=== PATIENT | male | born 1980 | race Caucasian/White ===

== ENCOUNTER 2016-08-17 05:43 | Emergency (ER) | payer OTHER ==
[~2016-08-17] VITALS: Ht 180.3 cm; Wt 94.1 kg
[2016-08-17 05:46] VITALS: Ht 180.3 cm; Wt 94.1 kg
[2016-08-17] MEDS ORDERED: CYCL10TA6 PO (06:19)
[2016-08-17] MEDS ORDERED: PRED50TA PO (06:19)
--- NOTE | 2016-08-17 06:19 | EMERGENCY ROOM VISIT NOTE ---
History Report prepared by Sunibmisty: Jake Mcconnell Under the Supervision of: Dr. Kirt Campoverde M.D. First contact with patient: 05:54 Chief Complaint: SHOULDER PAIN Stated Complaint: RIGHT SHOULDER PAIN History of Present Illness The patient is a 36 year old male who presents to the Emergency Room with complaints of persistent right shoulder pain beginning this week. He injured his shoulder in [place] 7 years ago, but has not had any significant problems with it since. He notes that he was white water rafting earlier this week. The patient has been taking Ibuprofen for his pain but has seen minimal relief. He notes that he drove to [place] for the white water rafting and has been experiencing some "tightness" in his neck. Source of History: patient Onset: This week Position: shoulder (right) Timing: other (persistent) Associated Symptoms: + neck pain ("tightness") Review of Systems See HPI for pertinent positives & negatives. A total of 6 systems reviewed and were otherwise negative. Past Medical & Surgical Medical Problems: (1) Concussion (2) No Known Active Medical Problems Family History No pertinent family history stated. Social History Smoking Status: Never Smoker Occupation Status: employed Current/Historical Medications Scheduled Prednisone (Prednisone), 50 MG PO DAILY Scheduled PRN Cyclobenzaprine Hcl (Flexeril), 10 MG PO TID PRN for Muscle Spasms Allergies Coded Allergies: Codeine (Unverified Allergy, Severe, unknown, 08/17/16) Penicillins (Unverified Allergy, Severe, unknown, 08/17/16) Physical Exam Vital Signs Date Time Temp Pulse Resp B/P (MAP) Pulse Ox O2 Delivery O2 Flow Rate FiO2 08/17/16 06:43 36.4 85 16 126/84 97 08/17/16 05:46 36.4 85 16 126/84 97 Room Air Physical Exam GENERAL: Patient is well appearing and in no acute distress. HEENT: No acute trauma, normocephalic atraumatic, mucous membranes moist, no nasal congestion, no scleral icterus. NECK: No stridor, no adenopathy, no meningismus, trachea is midline. LUNGS: No dyspnea. Clear to auscultation and equal bilaterally. No wheeze, no rhonchi. HEART: Regular rate and rhythm. No murmurs, rubs, gallops appreciated. ABDOMEN: Soft, nontender, bowel sounds positive, no masses appreciated, no peritonitis. BACK: No midline tenderness, no CVA tenderness EXTREMITIES: Tenderness over the lateral right shoulder with pain on ROM above 90 degrees. Spasm of the right rhomboid muscles. Normal NVI. NEUROLOGIC: Alert and oriented, no acute motor or sensory deficits, no focal weakness, cranial nerves grossly intact. SKIN: No rash, no jaundice, no diaphoresis. Medical Decision & Procedures ER Provider Diagnostic Interpretation: Three View Chest X-ray interpreted by me: no fracture . No dislocation . No soft tissue swelling. Medications Administered Medications (Trade) Dose Ordered Sig/Nitesh Route Start Time Stop Time Status Last Admin Dose Admin Prednisone (PredniSONE TAB) 60 mg NOW STAT PO 08/17/16 06:16 08/17/16 06:17 DC 08/17/16 06:40 60 MG Cyclobenzaprine HCl (FLEXERIL 10MG Home Pack) 1 homepack UD ONCE PO 08/17/16 06:30 08/17/16 06:31 DC 08/17/16 06:40 1 HOMEPACK ED Course 0555: The patient was evaluated in room A3. A complete history and physical exam was performed. 0615: I reassessed the patient. He is comfortable with steroids and Flexeril. He has used Flexeril in the past. I discussed the sedative properties with him. 0616: Ordered Prednisone Tab 60 mg PO. 0630: Ordered Flexeril 10 mg homepack PO. Reevaluated the patient. Discussed results and discharge instructions: he verbalized understanding and agreement. The patient is ready for discharge. Medical Decision Differential: Fracture, Dislocation, Cellulitis, Septic Joint, Ligamentous Injury, Effusion, DVT, amongst other pathologies entertained. 36 yr old male with right shoulder discomfort and rhomboid spasm post white water rafting and long drive. No evidence of DVT on examination nor vascular compromise. Clearly seems MSK given exam. No calcifications nor bony abnormality on imaging. Not septic joint. No effusion by exam. Likely sprain/ tendonitis and with NSAID not working will try steroid. Tolerated flexeril in past and will use for spasm. Sling given discomfort but stressed ROM exercises early. Return or follow up with PCP if no improvement or if worsening. Impression Primary Impression: Right shoulder strain Additional Impression: Right shoulder tendinitis Scribe Attestation The scribe's documentation has been prepared under my direction and personally reviewed by me in its entirety. I confirm that the note above accurately reflects all work, treatment, procedures, and medical decision making performed by me. Departure Information Dispostion Home / Self-Care Prescriptions Cyclobenzaprine Hcl (FLEXERIL) 10 Mg Tab 10 MG PO TID Y for Muscle Spasms, #15 TAB Prov: Kirt Campoverde M.D. 08/17/16 Prednisone (PREDNISONE) 50 Mg Tab 50 MG PO DAILY for 5 Days, #5 TAB Prov: Kirt Campoverde M.D. 08/17/16 Referrals Primary Care Provider Patient Instructions ED Sprain Shoulder, [facility] Problem Qualifiers Primary Impression: Right shoulder strain Encounter type: initial encounter Qualified Codes: S46.911A - Strain of unspecified muscle, fascia and tendon at shoulder and upper arm level, right arm , initial encounter
[2016-08-17] MEDS ORDERED: FLEXERIL HOME PACK 10 MG VIAL PO ONE (06:30)
[2016-08-17 06:43] VITALS: BP 126/84; PULSE 85; TEMP 36.4; O2SAT 97
--- NOTE | 2016-08-17 08:17 | DIAGNOSTIC IMAGING REPORT ---
RIGHT SHOULDER 3 VIEWS CLINICAL HISTORY: Right shoulder pain after physical activity. FINDINGS: 3 views of the right shoulder are obtained. No prior studies are available for comparison at the time of dictation. The skeletal structures are well mineralized. No fracture or dislocation is seen. The glenohumeral and acromioclavicular joints are normal in appearance. The overlying soft tissues are within normal limits. The visualized right lung parenchyma appears clear. IMPRESSION: No acute bony abnormality is seen in the right shoulder. Electronically signed by: Ace Perdomo M.D. 08/17/2016 8:15 AM Dictated Date/Time: 08/17/2016 8:15 AM
== END 2016-08-17 06:43 | disposition home or self-care (01) ==
LOC: C.EDB 05:44 → C.EDA 06:43
DX: S46.911A Strain of unspecified muscle, fascia and tendon at shoulder and upper arm level, right arm, initial encounter (principal); X58.XXXA Exposure to other specified factors, initial encounter; M75.91 Shoulder lesion, unspecified, right shoulder; Z87.820 Personal history of traumatic brain injury; Z88.0 Allergy status to penicillin; Z88.5 Allergy status to narcotic agent

== ENCOUNTER → 2016-08-20 | Outpatient (CLI) | payer OTHER ==
[~2016-08-20] MED LIST: CYCL10TA6 PO; PRED50TA PO
--- NOTE | 2016-08-20 11:12 | DIAGNOSTIC IMAGING REPORT ---
CERVICAL SPINE 5 VIEWS HISTORY: Pain. Neuropathy. CERVICALGIA COMPARISON: None. FINDINGS: The cervical spine is visualized from C1 through the superior endplate of T1. Mild straightening of the normal cervical curvature. Vertebral body stature is unremarkable. Minimal degenerative disc change C5-C6. Disc spaces are preserved. Prevertebral soft tissues and the atlantodens interval are intact. IMPRESSION: 1. Muscle spasm. 2. Minimal degenerative disc change C5-C6. 3. No acute process. Electronically signed by: Saul Corcoran M.D. 08/20/2016 11:10 AM Dictated Date/Time: 08/20/2016 11:09 AM
== END | disposition home or self-care (01) ==
LOC: C.RAD 10:38
PROVIDERS: ATTEND Nurse Practitioner Family
DX: M54.2 Cervicalgia (principal)

== ENCOUNTER → 2016-09-03 | Outpatient (CLI) | payer OTHER ==
--- NOTE | 2016-09-03 08:52 | DIAGNOSTIC IMAGING REPORT ---
MRI THE RIGHT SHOULDER NO CONTRAST CLINICAL HISTORY: Right shoulder pain and decreased range of motion. COMPARISON STUDY: Conventional radiographic study dated 08/17/2016 FINDINGS: The patient was imaged in the sagittal, coronal, and axial planes. There are no suspicious areas of marrow replacement. No labral abnormalities are visualized. The bicipital tendon appears normal. There is no evidence of rotator cuff tear. There is no evidence of pathologic muscular atrophy. IMPRESSION: Normal study Electronically signed by: Pj Dorsey M.D. 09/03/2016 8:51 AM Dictated Date/Time: 09/03/2016 8:49 AM
== END | disposition home or self-care (01) ==
LOC: C.MRIBC 07:37
PROVIDERS: ATTEND Internal Medicine
DX: M25.511 Pain in right shoulder (principal)

== ENCOUNTER → 2016-11-15 | Outpatient (CLI) | payer OTHER ==
[~2016-11-15] MED LIST changes: -CYCL10TA6 PO; +GADAVIST IV PRN; -PRED50TA PO
--- NOTE | 2016-11-15 08:52 | DIAGNOSTIC IMAGING REPORT ---
Brain MRI WITH AND WITHOUT CONTRAST HISTORY: NEURO POTENTIATE BEHAVIORS. Traumatic brain injury. Headaches. TECHNIQUE: Multiplanar multisequence MRI of the brain was performed both before and after the intravenous administration of contrast. COMPARISON STUDY: None. FINDINGS: There are no areas of restricted diffusion to suggest acute infarction. The midline structures are intact. Mild mucosal thickening within the paranasal sinuses. The mastoid air cells are clear. The ventricles and sulci are within normal limits for age. There is no mass, hematoma, midline shift. The major vascular flow-voids at the skull base are well maintained. Postcontrast sequences show no areas of abnormal enhancement. Incidental note is made of a developmental venous anomaly within the right occipital lobe. This is considered to be a normal variant. IMPRESSION: No acute intracranial abnormality. Electronically signed by: Chris Beck M.D. 11/15/2016 8:51 AM Dictated Date/Time: 11/15/2016 8:44 AM
== END | disposition home or self-care (01) ==
LOC: C.MRIBC 07:50
PROVIDERS: ATTEND Internal Medicine
DX: R51 Headache (principal)

== ENCOUNTER → 2017-03-02 | Outpatient (CLI) | payer OTHER | END | disposition home or self-care (01) | LOC: C.LAB 11:19 | DX: Z02.83 Encounter for blood-alcohol and blood-drug test (principal) ==

== ENCOUNTER → 2017-06-23 | Outpatient (CLI) | payer OTHER ==
--- NOTE | 2017-06-23 07:38 | DIAGNOSTIC IMAGING REPORT ---
L-SPINE MIN 4 VIEWS ROUTINE HISTORY: 37 years-old Male LUMBAGO acute lumbar spine pain COMPARISON: None available TECHNIQUE: 5 views of the lumbar spine FINDINGS: There are 6 nonrib-bearing lumbar type vertebral segments present. Schmorl's nodes are seen at several levels, notably at L1-L4. Mild multilevel endplate spurring without significant intervertebral disc space narrowing, acute fracture or subluxation. Soft tissues are unremarkable. IMPRESSION: 1. Multiple Schmorl's nodes with mild multilevel endplate spurring. No acute fracture or subluxation. 2. 6 nonrib-bearing lumbar type vertebral segments. The above report was generated using voice recognition software. It may contain grammatical, syntax or spelling errors. Electronically signed by: Emmanuel Moreno M.D. 06/23/2017 7:36 AM Dictated Date/Time: 06/23/2017 7:34 AM
== END | disposition home or self-care (01) ==
LOC: C.RAD 07:15
PROVIDERS: ATTEND Internal Medicine
DX: M54.5 Low back pain (principal); M51.46 Schmorl's nodes, lumbar region